=== PATIENT | female | born 1950 | race Caucasian/White ===

== ENCOUNTER 2017-05-26 05:28 | Inpatient (IN) ==
[2017-05-19 13:36] LABS: Basophils # 0.1 10*3/uL (0.0-0.2); Basophils % 0.8 % (0.0-0.8); Eosinophils # 0.1 10*3/uL (0.0-0.87); Eosinophils % 1.5 % (0.00-10.9); Hematocrit 43.9 VOL% (35.7-47.0); Hemoglobin 14.9 GM/DL (12.0-16.0); Immature Granulocytes % 0.3 %; Immature Granulocytes Absolute 0.02 #; Lymphocytes % 12.6 % (21.3-54.2); Mean Corpuscular HGB Conc 33.9 GM/DL (32-36); Mean Corpuscular Hemoglobin 32 PG (27-34); Mean Platelet Volume 10.5 FL (9.6-12.0); Monocytes # 0.7 10*3/uL (0.11-0.8); Monocytes % 8.6 % (1.7-12.7); Neutrophils % 76.2 % (38.7-73.9); Platelet Count 249 T/CUMM (130-400); Red Blood Count 4.62 MC/CUMM (3.8-5.5); Red Cell Distribution Width 14.2 % (9.3-17.3); White Blood Count 7.8 T/CUMM (4-12)
[2017-05-19 13:37] LABS: Apearance,Urine CLOUDY (Clear); Bacteria,Urine Moderate /HPF (Few); Bilirubin,Urine Negative (Negative); Blood, Urine Small mg/dL (Negative); Glucose,Urine (UA) Negative (Negative); Ketones,Urine Negative (Negative); Nitrite,Urine Negative (Negative); Protein,Urine 30 MG/DL; RBC,Urine 17 /HPF (0-4); Squamous Epithelial Cell,Urine Few /HPF (0-10); Urine Color Yellow (Yellow); Urine Specific Gravity 1.015 (1.001-1.035); Urine Urobilinogen < 2.0 EU/DL (0.2-1.0); WBC,Urine 455 /HPF (0-6)
[2017-05-19 13:45] LABS: INR 1.1; PT Patient Result 11.7 SECS
[2017-05-19 13:49] LABS: Partial Thromboplastin Time 45.5 SECS (0-40)
[2017-05-19 14:14] LABS: Albumin 4.2 G/DL (3.4-5.0); Bilirubin,Total 0.5 MG/DL (0.2-1.0); Calcium 9.3 MG/DL (8.5-10.1); Osmolality,Calculated 276.1 MOS/KG (273-304); Potassium 5.6 MMOL/L (3.5-5.1); Total Protein 7.5 G/DL (6.4-8.3)
[2017-05-26] MEDS ORDERED: VANCOMYCIN INJ 1,000 MG in SODIUM CHLORIDE 0.9% 250 ML IV ONE (06:00)
[2017-05-26] MEDS ORDERED: ceFAZolin 1,000 MG in SYRINGE 1 EACH IV ONE (06:00)
[2017-05-26] MEDS ORDERED: BACITRACIN OINT 0.9 GM PACK TOP ONE (08:54)
[2017-05-26] MEDS ORDERED: TRANEXAMIC ACID 1,000 MG/10 ML VIAL IV ONE (08:54)
[2017-05-26] MEDS ORDERED: LACTATED RINGERS 1,000 ML IV SCH (09:30)
[2017-05-26] MEDS ORDERED: GLUCAGON 1 MG VIAL IM PRN (10:00)
[2017-05-26] MEDS ORDERED: DEXTROSE 50% 25 GM/50 ML VIAL IV PRN (10:00)
[2017-05-26] MEDS ORDERED: oxyCODONE IR 5 MG TABLET PO PRN ×2 (10:01)
[2017-05-26] MEDS ORDERED: ONDANSETRON 4 MG/2 ML VIAL IV PRN (10:01)
[2017-05-26] MEDS ORDERED: diphenhydrAMINE CAP 25 MG CAPSULE PO PRN (10:01)
[2017-05-26] MEDS ORDERED: MORPHINE 10 MG/1 ML VIAL IV PRN ×2 (10:01)
[2017-05-26] MEDS ORDERED: MAGNESIUM HYDROXIDE SUSP 30 ML UDCUP PO PRN (10:01)
[2017-05-26] MEDS ORDERED: ZALEPLON 5 MG CAPSULE PO PRN (10:01)
[2017-05-26] MEDS: LACTATED RINGERS 1,000 ML IV SCH ×3 (11:35→21:38)
[2017-05-26] MEDS ORDERED: ROPIVACAINE 0.5% 30 ML VIAL ONE (11:38)
[2017-05-26] MEDS ORDERED: PROPOFOL 200 MG/20 ML VIAL IV ONE (12:26)
[2017-05-26] MEDS ORDERED: fentaNYL 100 MCG/2 ML VIAL ONE (12:27)
[2017-05-26] MEDS ORDERED: DEXAMETHASONE 10 MG/1 ML VIAL ONE (12:27)
[2017-05-26] MEDS ORDERED: HYDROmorphone 2 MG/1 ML VIAL ONE (12:27)
[2017-05-26] MEDS ORDERED: GLYCOPYRROLATE 0.4 MG/2 ML VIAL ONE (12:27)
[2017-05-26] MEDS ORDERED: DESFLURANE 1 UNIT/15 MINUTE INH ONE (12:27)
[2017-05-26] MEDS ORDERED: MIDAZOLAM 2 MG/2 ML VIAL ONE (12:27)
[2017-05-26] MEDS ORDERED: ONDANSETRON 4 MG/2 ML VIAL ONE (12:27)
[2017-05-26] MEDS ORDERED: LACTATED RINGERS 1,000 ML IV ONE (12:28)
[2017-05-26] MEDS ORDERED: ROCURONIUM 100 MG/10 ML VIAL IV ONE (12:28)
[2017-05-26] MEDS: KETOROLAC 30 MG/1 ML VIAL IV SCH ×3 (12:52→21:32)
[2017-05-26] MEDS: INSULIN LISPRO 100 UNIT/ML SUBCUT SCH ×3 (12:52→21:31)
[2017-05-26] MEDS: ACETAMINOPHEN 500 MG TABLET PO SCH ×2 (13:23→21:31)
[2017-05-26] MEDS: ceFAZolin 2,000 MG in PREMIX 1 EACH IV SCH ×2 (14:05→21:40)
[2017-05-26] MEDS: DILTIAZEM 60 MG TABLET PO SCH (21:31)
[2017-05-26] MEDS: DOCUSATE SODIUM 100 MG CAPSULE PO SCH (21:32)
[2017-05-27] MEDS: LACTATED RINGERS 1,000 ML IV SCH (02:39)
[2017-05-27] MEDS: ACETAMINOPHEN 500 MG TABLET PO SCH ×2 (02:59→08:54)
[2017-05-27] MEDS: KETOROLAC 30 MG/1 ML VIAL IV SCH ×3 (06:05→11:38)
[2017-05-27 06:33] LABS: Basophils % 0.1 % (0.0-0.8); Hematocrit 37.2 VOL% (35.7-47.0); Hemoglobin 12.1 GM/DL (12.0-16.0); Immature Granulocytes % 0.5 %; Immature Granulocytes Absolute 0.06 #; Lymphocytes # 0.5 10*3/uL (1.4-4.0); Lymphocytes % 4.3 % (21.3-54.2); Mean Corpuscular HGB Conc 32.5 GM/DL (32-36); Mean Corpuscular Hemoglobin 31 PG (27-34); Mean Corpuscular Volume 96.6 FL (87-102); Monocytes % 8.2 % (1.7-12.7); Neutrophils # 10.9 10*3/uL (1.4-7.4); Neutrophils % 86.9 % (38.7-73.9); Platelet Count 184 T/CUMM (130-400); Red Blood Count 3.85 MC/CUMM (3.8-5.5); Red Cell Distribution Width 13.6 % (9.3-17.3); White Blood Count 12.6 T/CUMM (4-12)
[2017-05-27 07:01] LABS: Band Neutrophils 1 % (0-10); Hypochromasia 1+; Lymphocytes 1 % (20-55); Segmented Neutrophils 89 % (50-85); Total Cells Counted 100
[2017-05-27 07:02] LABS: Platelet Estimate Adequate
[2017-05-27 07:03] LABS: Calcium 8.7 MG/DL (8.5-10.1); Calcium 8.8 MG/DL (8.5-10.1); Osmolality,Calculated 277.2 MOS/KG (273-304); Osmolality,Calculated 278.1 MOS/KG (273-304)
[2017-05-27] MEDS: INSULIN LISPRO 100 UNIT/ML SUBCUT SCH ×4 (08:51→22:22)
[2017-05-27] MEDS: DOCUSATE SODIUM 100 MG CAPSULE PO SCH ×2 (08:53→21:54)
[2017-05-27] MEDS: GLIMEPIRIDE 4 MG TABLET PO SCH (08:53)
[2017-05-27] MEDS: CHOLECALCIFEROL 5,000 UNIT TABLET PO SCH (08:53)
[2017-05-27] MEDS: MAGNESIUM OXIDE 400 MG TABLET PO SCH (08:53)
[2017-05-27] MEDS: SPIRONOLACTONE 50 MG TABLET PO SCH (08:53)
[2017-05-27] MEDS: PIOGLITAZONE 15 MG TABLET PO SCH (08:53)
[2017-05-27] MEDS: DILTIAZEM 60 MG TABLET PO SCH ×2 (08:54→21:53)
[2017-05-27] MEDS: DABIGATRAN 150 MG CAPSULE PO SCH ×2 (08:54→21:54)
[2017-05-27] MEDS: metFORMIN 500 MG TABLET PO SCH ×2 (08:54→16:51)
[2017-05-27] MEDS: ASCORBIC ACID 500 MG TABLET PO SCH (08:54)
[2017-05-27] MEDS: LISINOPRIL 2.5 MG TABLET PO SCH (08:54)
[2017-05-27] MEDS ORDERED: METOPROLOL TARTRATE 100 MG TABLET PO SCH (09:00)
[2017-05-27] MEDS: CELECOXIB 200 MG CAPSULE PO SCH (16:51)
[2017-05-27] MEDS: METOPROLOL SUCCINATE XL 25 MG TABLET PO SCH (21:53)
[2017-05-28 06:09] LABS: Basophils % 0.2 % (0.0-0.8); Eosinophils # 0.1 10*3/uL (0.0-0.87); Eosinophils % 0.6 % (0.00-10.9); Hemoglobin 11.3 GM/DL (12.0-16.0); Immature Granulocytes % 0.4 %; Immature Granulocytes Absolute 0.03 #; Lymphocytes % 11.7 % (21.3-54.2); Mean Corpuscular HGB Conc 33.2 GM/DL (32-36); Mean Corpuscular Hemoglobin 32 PG (27-34); Mean Corpuscular Volume 95.8 FL (87-102); Monocytes % 11.8 % (1.7-12.7); Neutrophils # 6.2 10*3/uL (1.4-7.4); Neutrophils % 75.3 % (38.7-73.9); Platelet Count 160 T/CUMM (130-400); Red Blood Count 3.55 MC/CUMM (3.8-5.5); Red Cell Distribution Width 13.5 % (9.3-17.3); White Blood Count 8.2 T/CUMM (4-12)
[2017-05-28] MEDS: INSULIN LISPRO 100 UNIT/ML SUBCUT SCH ×2 (07:30→11:06)
[2017-05-28] MEDS: LISINOPRIL 2.5 MG TABLET PO SCH (10:04)
[2017-05-28] MEDS: metFORMIN 500 MG TABLET PO SCH (10:04)
[2017-05-28] MEDS: CHOLECALCIFEROL 5,000 UNIT TABLET PO SCH (10:04)
[2017-05-28] MEDS: CELECOXIB 200 MG CAPSULE PO SCH (10:04)
[2017-05-28] MEDS: SPIRONOLACTONE 50 MG TABLET PO SCH (10:07)
[2017-05-28] MEDS: DOCUSATE SODIUM 100 MG CAPSULE PO SCH (10:07)
[2017-05-28] MEDS: MAGNESIUM OXIDE 400 MG TABLET PO SCH (10:07)
[2017-05-28] MEDS: DILTIAZEM 60 MG TABLET PO SCH (10:08)
[2017-05-28] MEDS: PIOGLITAZONE 15 MG TABLET PO SCH (10:08)
[2017-05-28] MEDS: DABIGATRAN 150 MG CAPSULE PO SCH (10:09)
[2017-05-28] MEDS: METOPROLOL SUCCINATE XL 25 MG TABLET PO SCH (10:09)
[2017-05-28] MEDS: ASCORBIC ACID 500 MG TABLET PO SCH (10:10)
[2017-05-28] MEDS: GLIMEPIRIDE 4 MG TABLET PO SCH (10:10)
[2017-05-28 11:30] VITALS: BP 119/72
== END 2017-05-28 16:15 | disposition home health service (06) | DRG 470 ==
LOC: N.SDSINP 05:28 → N.3E 12:27
PROVIDERS: ADMIT Orthopaedic Surgery; ATTEND Orthopaedic Surgery